=== PATIENT | male | born 1960 | race Caucasian/White ===

== ENCOUNTER 2021-05-11 01:11 | Day surgery (SDC) | payer OTHER, SELFPAY ==
[2021-04-15 13:31] VITALS: BMI 35.8
--- NOTE | 2021-04-29 10:42 | PC.NURSE ---
Rescheduled procedure from 04/23/21, no changes in health history, medications, height or weight. Confirmed new arrival time, date, and hi lo driver for procedure.
[2021-05-11 06:51] VITALS: BP 139/95; PULSE 73; RESP 20; TEMP 36.1; O2SAT 97; BMI 35.2
[2021-05-11] MEDS: LACTATED RINGERS 1,000 ML 150 ML IV CONT (07:00)
[2021-05-11] MEDS: AMPICILLIN 2 GM/NS 100 ML 2 GM/100 ML BAG IVPB (07:01)
--- NOTE | 2021-05-11 07:19 | WPDGICN ---
Assessment and Plan Assessment and plan (1) Encounter for screening colonoscopy: Code(s): Z12.11 - Encounter for screening for malignant neoplasm of colon Status: Acute Assessment and Plan: Patient presents for screening colonoscopy. Appears to be at average risk for colon polyps. GI Consult Note Consult date/time: 05/11/21 07:19 HPI: Jake Aldana is a 60 year old male Presents for screening colonoscopy. Patient reports his last colonoscopy was at age 48. It was normal. Patient reports that his current weight appetite bowel movements are normal. He denies abdominal pain. He has had no bleeding. Family history is noncontributory. Review of Systems Review of Systems: All systems reviewed & are unremarkable except as noted in HPI and below PMFSH Social History Social History Smoking status: Never smoker Alcohol intake: current Alcohol use details: 5-7 beers/daily Substance use: never Substance use type: does not use Living arrangements: with family Gender identity (if verbalized by the patient): Male Spiritual care concerns: No Meds Home Medications and Allergies Home Medications Medication Instructions Recorded Confirmed Type allopurinol 300 mg PO DAILY 04/15/21 04/15/21 History alprazolam 1 mg PO PRN 04/15/21 04/15/21 History furosemide 20 mg PO DAILY 04/15/21 04/15/21 History lisinopril 40 mg PO DAILY 04/15/21 04/15/21 History metoprolol tartrate 100 mg PO BID 04/15/21 04/15/21 History simvastatin 40 mg PO DAILY 04/15/21 04/15/21 History tramadol 50 mg PO PRN 04/15/21 04/15/21 History Allergies Allergy/AdvReac Type Severity Reaction Status Date / Time No Known Allergies Allergy Unknown Verified 05/11/21 06:50 Vital Signs Vital Signs - 24 hr 05/11/21 06:51 Temperature 97.0 F L Pulse Rate 73 Respiratory Rate 20 Blood Pressure 139/95 H Pulse Oximetry 97 Exam Narrative: Physical exam reveals patient be alert. Vital signs stable. HEENT exam unremarkable. Patient is anicteric. Lungs are clear to auscultation and percussion. Heart is without murmur or extra sounds. Abdomen is somewhat obese. He has mild diastasis recti. Extremities are without clubbing cyanosis or edema. Digital external rectal exam is normal.
--- NOTE | 2021-05-11 07:30 | P.PNAN_ITS ---
Anes - Initial Pre Proc Eval Procedure: Operation Date: 05/11/21 08:00 Proposed Procedures p Screening Colonoscopy - Price Mendieta MD Date/Time: 05/11/21 07:30 Surgeon: Price Mendieta MD Pre Op Diagnosis: neoplasm screening Patient Data Age: 60 Gender: M Height: 1.75 m Weight: 108 kg Last Vital Signs Temp 97.0 F L 05/11/21 06:51 Pulse 73 05/11/21 06:51 Resp 20 05/11/21 06:51 BP 139/95 H 05/11/21 06:51 Pulse Ox 97 05/11/21 06:51 Allergies Allergy/AdvReac Type Severity Reaction Status Date / Time No Known Allergies Allergy Unknown Verified 05/11/21 06:50 Home Medications Medication Instructions Recorded Confirmed Type allopurinol 300 mg PO DAILY 04/15/21 04/15/21 History alprazolam 1 mg PO PRN 04/15/21 04/15/21 History furosemide 20 mg PO DAILY 04/15/21 04/15/21 History lisinopril 40 mg PO DAILY 04/15/21 04/15/21 History metoprolol tartrate 100 mg PO BID 04/15/21 04/15/21 History simvastatin 40 mg PO DAILY 04/15/21 04/15/21 History tramadol 50 mg PO PRN 04/15/21 04/15/21 History Patient hx anesthesia problems: none Family hx anesthesia problems: none [facility] Past Medical History Medical History (Updated 05/11/21 @ 07:27 by Sam Garcia MD) Anxiety Hyperlipidemia Hypertension Social History Social History Smoking status: Never smoker Alcohol intake: current Alcohol use details: 5-7 beers/daily Substance use: never Substance use type: does not use Living arrangements: with family Gender identity (if verbalized by the patient): Male Spiritual care concerns: No Anes - Eval Final PreProcedure Day of Procedure 05/11/21 07:30 Patient weight: obese Heart: regular rate and rhythm Lungs: clear to auscultation Airway: Mallampati scale class III Neurological: alert and oriented Last oral intake: >/= 8 hours ASA classification: III Emergent: no Anesthetic plan: proceed Anesthesia type and monitoring: general GIVS and standard monitoring Informed Consent: The patient's anesthetic plan and its attendant risks and benefits were discussed with the patient/family/POA. Questions were solicited and answers provided to the satisfaction of the patient/family/POA.
--- NOTE | 2021-05-11 08:03 | SUR.OPER ---
cecal time 0802
[2021-05-11 08:13] VITALS: BP 137/74; PULSE 65; RESP 17; O2SAT 98
[2021-05-11 08:23] VITALS: BP 139/85; PULSE 61; RESP 18; O2SAT 100
[2021-05-11 08:33] VITALS: BP 133/86; PULSE 58; RESP 12; O2SAT 99
== END 2021-05-11 08:37 | disposition home or self-care (01) ==
PROVIDERS: PCP Family Medicine; Visit Provider Internal Medicine Gastroenterology
PROC: 0DJD8ZZ Inspection of Lower Intestinal Tract, Via Natural or Artificial Opening Endoscopic (ICD-10-PCS; CPT 45378; principal; 2021-05-11 08:00)
DX: Z12.11 Encounter for screening for malignant neoplasm of colon (principal); K64.8 Other hemorrhoids; D12.4 Benign neoplasm of descending colon; F41.9 Anxiety disorder, unspecified; I10 Essential (primary) hypertension; E78.5 Hyperlipidemia, unspecified; E66.9 Obesity, unspecified; Z68.35 Body mass index [BMI] 35.0-35.9, adult
CPT/HCPCS: 45385; 88305; J0290; J2001; J2704; J7120